=== PATIENT | male | born 1965 | race Two or more races ===

== ENCOUNTER 2016-08-11 11:02 | Emergency (ER) | payer OTHER ==
[2016-08-11 11:06] VITALS: BP 126/77; PULSE 82; TEMP 99.5; BMI 33.3
--- NOTE | 2016-08-11 11:47 | PDOC ---
History of Present Illness - General Chief Complaint: Cold Symptoms Stated Complaint: BODY ACHES, FEVER Time Seen by Provider: 08/11/16 11:24 History Source: Patient Exam Limitations: No Limitations - History of Present Illness Initial Comments: 08/11/16 11:45 My Chief Complaint: Generalized body aches, fever since yesterday History of present illness: Patient is a 51-year-old male with a history of glaucoma here today complaining of generalized body aches and fever since yesterday. Patient reports that he did have his influenza vaccine a couple of months ago. Patient denies any sick contacts or any recent travel. Patient denies any nasal congestion, sore throat, cough, or any shortness of breath. Timing/Duration: intermittent (since yesterday) Associated Symptoms: reports: fever/chills, other (bodyaches ) Past History - Past Medical History Allergies/Adverse Reactions: Allergies Allergy/AdvReac Type Severity Reaction Status Date / Time aspirin Allergy Mild "BLOOD Verified 08/11/16 11:08 BECOMES TOO LIQUID" Home Medications: Ambulatory Orders Dorzolamide HCl [Trusopt 2%] 1 drop TID 09/17/15 Latanoprost 2.5 ml OP BID 09/17/15 Lidocaine 5% Patch [Lidoderm -] 1 patch TP DAILY #3 patch 09/17/15 Metaxalone [Skelaxin] 800 mg PO TID PRN #12 tablet 09/17/15 Other medical history: GLAUCOMA - Psycho/Social/Smoking Cessation Hx Anxiety: No Suicidal Ideation: No Smoking History: Current every day smoker Number of Cigarettes Smoked Daily: 20 Information on smoking cessation initiated: No 'Breaking Loose' booklet given: 05/10/14 Hx Alcohol Use: No Drug/Substance Use Hx: No Substance Use Type: None Review of Systems - Review of Systems Able to Perform ROS?: Yes Constitutional: Yes: Chills, Fever HEENTM: Yes: Nose Congestion Respiratory: No: Symptoms reported Cardiac (ROS): No: Symptoms Reported ABD/GI: No: Symptoms Reported : No: Symptoms Reported Musculoskeletal: Yes: Other (generalized bodyaches) Integumentary: No: Symptoms Reported Neurological: No: Symptoms reported *Physical Exam - Vital Signs Last Vital Signs Temp Pulse Resp BP Pulse Ox 99.5 F 82 20 126/77 98 08/11/16 11:03 08/11/16 11:03 08/11/16 11:03 08/11/16 11:03 08/11/16 11:03 - Physical Exam General Appearance: Yes: Appropriately Dressed HEENT: positive: Normal ENT Inspection Neck: negative: Lymphadenopathy (R), Lymphadenopathy (L) Respiratory/Chest: positive: Lungs Clear, Normal Breath Sounds. negative: Chest Tender, Respiratory Distress Cardiovascular: positive: Regular Rhythm, Regular Rate, S1, S2 Integumentary: positive: Normal Color Neurologic: positive: Alert, Normal Response, Responsive Medical Decision Making - Medical Decision Making 08/11/16 11:46 Patient is a 51-year-old male with a history of glaucoma here today complaining of generalized body aches and fever since yesterday. Patient reports that he did have his influenza vaccine a couple of months ago. Patient denies any sick contacts or any recent travel. Patient denies any nasal congestion, sore throat , cough, or any shortness of breath. Rule out influenza A o& B flu like illness Plan: Influenza A o& B rapid negative pt. instructed to rest and to take either advil, aleve or ibuprofen as needed for fever or bodyaches 08/11/16 12:15 *DC/Admit/Observation/Transfer Diagnosis at time of Disposition: Flu-like symptoms - Discharge Dispostion Disposition: HOME Condition at time of disposition: Stable - Patient Instructions Additional Instructions: Rest and drink a lot of fluids Take ibuprofen, Aleve, or Advil as needed as directed by manufacture for body aches or fever Return here if any difficulty breathing or swallowing or any new symptoms develop Follow-up with your primary care provider within the next few days Patient voiced understanding of discharge instructions and all questions were answered had
== END 2016-08-11 12:22 | disposition home or self-care (01) ==
LOC: JERFT 11:02
DX: J11.1 Influenza due to unidentified influenza virus with other respiratory manifestations (principal); F17.210 Nicotine dependence, cigarettes, uncomplicated
CPT/HCPCS: 87804; 99281-25

== ENCOUNTER 2018-05-10 14:10 | Emergency (ER) | payer OTHER ==
[2018-05-10 14:24] VITALS: BP 133/91; PULSE 85; TEMP 98.5; BMI 34.6
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
[2018-05-10] MEDS ORDERED: KETOROLAC TROMETHAMINE 60 MG/2 ML VIAL ONE (15:00)
[2018-05-10] MEDS ORDERED: ACETAMINOPHEN 500 MG TABLET (FP) PO ONE (16:26)
[2018-05-10] MEDS ORDERED: ACETAMINOPHEN 325 MG TABLET (FP) ONE (16:47)
[2018-05-10] MEDS ORDERED: KETOROLAC TROMETHAMINE 30 MG/1 ML VIAL IM ONE (16:54)
== END 2018-05-10 18:58 | disposition home or self-care (01) ==
LOC: JER 14:10
PROC: 3E0233Z Introduction of Anti-inflammatory into Muscle, Percutaneous Approach (ICD-10-PCS; principal; 2018-05-10)
DX: G44.319 Acute post-traumatic headache, not intractable (principal); R68.84 Jaw pain; M54.5 Low back pain; V43.62XA Car passenger injured in collision with other type car in traffic accident, initial encounter; Y92.488 Other paved roadways as the place of occurrence of the external cause; Y93.89 Activity, other specified; Y99.8 Other external cause status
CPT/HCPCS: 70450-TC; 72100-TC-FY; 96372; 99281-25

== ENCOUNTER 2018-06-04 16:08 | Observation (INO) | payer OTHER ==
--- NOTE | 2018-06-04 16:16 | PDOC ---
Rapid Medical Evaluation Time Seen by Provider: 06/04/18 16:12 Medical Evaluation: Allergies Allergy/AdvReac Type Severity Reaction Status Date / Time aspirin Allergy Mild "BLOOD Verified 05/10/18 14:17 BECOMES TOO LIQUID" 06/04/18 16:13 I have performed a brief in-person evaluation of this patient. The patient presents with a chief complaint of: midsternal chest pain Pertinent physical exam findings: Lungs CTAB. RRR. No m/r/g. TTP to left chest at 4th ICS. I have ordered the following: labs, ekg, urine, CXR The patient will proceed to the ED for further evaluation. Discharge Disposition - Diagnosis Chest pain - Referrals - Patient Instructions - Post Discharge Activity
[2018-06-04 16:23] VITALS: BMI 33.6
[2018-06-04 17:05] LABS: BASO % 0.4 % (0-2.0); EOS % 1.6 % (0-4.5); HEMATOCRIT 42.5 % (35.4-49); LYMPH % 27.8 % (8-40); MCH 30.7 pg (25.7-33.7); MCHC 35.3 g/dl (32.0-35.9); MEAN PLT VOLUME 9.9 fl (7.5-11.1); MONO % 6.5 % (3.8-10.2); NEUT % 63.7 % (42.8-82.8); PLATELET COUNT 136 K/MM3 (134-434); RBC 4.89 M/mm3 (4.00-5.60); RDW 12.4 % (11.9-15.9); WHITE BLOOD COUNT 7.6 K/mm3 (4.0-10.0)
[2018-06-04] MEDS ORDERED: ACETAMINOPHEN 325 MG TABLET (FP) PO ONE (17:08)
--- NOTE | 2018-06-04 17:08 | PDOC ---
History of Present Illness - General Chief Complaint: Chest Pain Stated Complaint: CHEST PAIN Time Seen by Provider: 06/04/18 16:12 - History of Present Illness Initial Comments: 06/04/18 17:04 Patient is a 53 year old male with past medical history of glaucoma, presented with sudden-onset 10/10 tearing mid-sternal chest pain that started this morning. Pain was nonradiating, occured at rest, and lasted for about 30 minutes. This was the patient's first episode. Patient consulted with PCP because the chest pain became intermittent. At the office, BP was noted to be elevated at 140s/90s, EKG was done which was reported to be normal, and patient was sent home with instructions to take Nitroglycerin and to go to the ED if pain persists. Patient then went to Dr. Jimenez's office for further evaluation of a noted elevated Creatinine of 3. On the way home, patient experienced the chest pain again, took another dose of nitroglycerin and came to the ED. Patient also reports headache after taking the 2nd dose of nitroglycerin. Denies dizziness, fevers, chills, SOB, palpitations, abdominal pain, or urinary symptoms. Past History - Travel Traveled outside of the country in the last 30 days: No Close contact w/someone who was outside of country & ill: No - Past Medical History Allergies/Adverse Reactions: Allergies Allergy/AdvReac Type Severity Reaction Status Date / Time aspirin Allergy Mild "BLOOD Verified 06/04/18 16:23 BECOMES TOO LIQUID" Home Medications: Ambulatory Orders Dorzolamide HCl [Trusopt 2%] 1 drop TID 09/17/15 Latanoprost 2.5 ml OP BID 09/17/15 Asthma: No Cardiac Disorders: No COPD: No Hx Glaucoma: Yes HTN: No Hypercholesterolemia: No - Family Disease History Family Disease History: Diabetes: Mother - Suicide/Smoking/Psychosocial Hx Smoking History: Current every day smoker Have you smoked in the past 12 months: Yes Number of Cigarettes Smoked Daily: 2 Information on smoking cessation initiated: No 'Breaking Loose' booklet given: 05/10/14 Hx Alcohol Use: No Drug/Substance Use Hx: No Substance Use Type: None Lives with/in: spouse/SO Review of Systems - Review of Systems Constitutional: Yes: Weakness. No: Chills, Fever HEENTM: No: Blurred Vision, Nose Congestion, Difficulty Swallowing Respiratory: No: Cough, Orthopnea, Shortness of Breath Cardiac (ROS): Yes: Chest Pain. No: Edema, Palpitations ABD/GI: No: Abdominal Distended, Constipated, Diarrhea : No: Burning, Dysuria Musculoskeletal: No: Back Pain, Muscle Weakness *Physical Exam - Vital Signs Last Vital Signs Temp Pulse Resp BP Pulse Ox 98.9 F 84 18 139/92 100 06/05/18 15:01 06/05/18 15:01 06/05/18 15:01 06/05/18 15:01 06/05/18 15:01 - Physical Exam General Appearance: Yes: Nourished, Appropriately Dressed, Mild Distress HEENT: positive: EOMI, DEEP, Normal ENT Inspection, TMs Normal, Pharynx Normal Neck: positive: Trachea midline, Normal Thyroid, Supple Respiratory/Chest: positive: Lungs Clear, Normal Breath Sounds Cardiovascular: positive: Regular Rhythm, Regular Rate. negative: Murmur Gastrointestinal/Abdominal: positive: Normal Bowel Sounds, Tender (epigastric tenderness), Soft. 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, Fully Oriented, Alert, Normal Mood/ Affect, Normal Response, Motor Strength 5/5 Heart Score/ECG Review - Electrocardiogram EKG: Normal ED Treatment Course - LABORATORY CBC & Chemistry Diagram: 06/05/18 06:00 06/05/18 06:00 - ADDITIONAL ORDERS Additional order review: 06/04/18 16:46 RBC 4.89 MCV 87.0 MCHC 35.3 RDW 12.4 MPV 9.9 Neutrophils % 63.7 Lymphocytes % 27.8 Monocytes % 6.5 Eosinophils % 1.6 Basophils % 0.4 - RADIOLOGY Radiology Studies Ordered: Category Date Time Status ABDOMEN/PELVIS CTA W/WO CONTR [CT] Stat CT Scan 06/04/18 18:00 Completed CHEST CTA [CT] Stat CT Scan 06/04/18 17:58 Completed - Medications Given in the ED: ED Medications Discontinued Medications Generic Name Dose Route Start Last Admin Trade Name Freq PRN Reason Stop Dose Admin Acetaminophen 650 mg 06/04/18 17:08 06/04/18 17:20 Tylenol - PO 06/04/18 17:09 650 mg ONCE ONE Administration Clopidogrel Bisulfate 300 mg 06/05/18 14:23 11/22/18 14:43 Plavix - PO 06/05/18 14:24 300 mg ONCE ONE Administration Sodium Chloride 1,000 mls @ 1,000 mls/hr 06/04/18 17:28 06/04/18 17:30 Normal Saline - IV 06/04/18 18:27 1,000 mls/hr ASDIR STA Administration Sodium Chloride 1,000 mls @ 1,000 mls/hr 06/04/18 18:37 06/04/18 18:58 Normal Saline - IV 06/04/18 19:36 1,000 mls/hr ASDIR STA Administration Non-Formulary Medication 1 each 06/04/18 22:00 06/04/18 22:04 Patient's Own Med OU 1 each DAILY CLARA Administration Medical Decision Making - Medical Decision Making 06/04/18 17:43 Patient is a 53 year old male with past medical history of glaucoma, presented with sudden-onset 10/10 tearing mid-sternal chest pain that started this morning. Pain was nonradiating, occured at rest, and lasted for about 30 minutes. Patient took 2 doses of Nitroglycerin tabs prior to coming to the ED. General: awake, alert, fully oriented, not in acute distress HEENT: PERRLA, EOMI, sclerae anicteric, no nasal discharge, moist mucous membranes Neck: supple, trachea midline without LAD Lung: clear to auscultation bilaterally Heart: regular rate and rhythm, normal S1/S2, no m,r,g Abdomen: soft, +epigastric tenderness, nondistended, NABS Ext: +2 pulses, warm, no peripheral edema DDx includes but not limited to ACS, aortic dissection, PE, GERD, MSK Plans: EKG - NSR CXR - no acute pathology CBC CMP Trop, CK Coags 06/04/18 19:15 CTA done - pending official read Iv NS bolus x2 Trop 0.05 Will repeat trop at 2230H *DC/Admit/Observation/Transfer Diagnosis at time of Disposition: Chest pain - Referrals - Patient Instructions - Post Discharge Activity
[2018-06-04] MEDS ORDERED: ACETAMINOPHEN 325 MG TABLET (FP) ONE (17:17)
[2018-06-04 17:23] LABS: INR 1.03 (0.83-1.09); PROTHROMBIN TIME (PATIENT) 12.2 SEC (9.7-13.0)
[2018-06-04] MEDS ORDERED: SODIUM CHLORIDE 1,000 ML IV STA ×2 (17:28→18:37)
[2018-06-04 17:29] LABS: ALBUMIN 3.9 g/dl (3.4-5.0); ALK PHOS 68 U/L (45-117); ANION GAP 10 MMOL/L (8-16); BILIRUBIN,TOTAL 1.2 mg/dL (0.2-1); BLOOD UREA NITROGEN 20 mg/dL (7-18); CALCIUM 8.6 mg/dL (8.5-10.1); CHLORIDE 108 mmol/L (98-107); CO2 24 mmol/L (21-32); CREATININE 1.4 mg/dL (0.55-1.3); GLUCOSE,RANDOM 87 mg/dL (74-106); MAGNESIUM 2.3 mg/dL (1.8-2.4); POTASSIUM 3.6 mmol/L (3.5-5.1); SGOT/AST 18 U/L (15-37); SGPT/ALT 29 U/L (13-61); SODIUM 143 mmol/L (136-145); TOT PROT 7.8 g/dl (6.4-8.2)
--- NOTE | 2018-06-04 17:40 | PDOC ---
Attending Attestation - HPI HPI: This is a 53 year old male, with PMHx of glaucoma, who was presents to the ED for chest pain earlier today. Patient states that the chest pain began earlier this morning while he was sitting down eating. He states that the chest pain lasted for 30 minutes then subsided. He describes it as mid-sternal, dull, tearing, rates 10/10. He states that he went to see his primary Dr. Del Toro who said his EKG was normal and gave him a dose of Nitroglycerin. He saw [facility] visual designer for a f/u and noted elevated creatinine. PCP: Dr. Del Toro 06/04/18 18:27 <Esha Tian - Last Filed: 06/04/18 18:27> - Resident Resident Name: Romy Cheng - ED Attending Attestation I have performed the following: I have examined & evaluated the patient, The case was reviewed & discussed with the resident, I agree w/resident's findings & plan, Exceptions are as noted - Physicial Exam PE: GENERAL: Awake, alert, and fully oriented, in no acute distress HEAD: No signs of trauma EYES: PERRLA, EOMI, sclera anicteric, conjunctiva clear ENT: Auricles normal inspection, hearing grossly normal, nares patent, oropharynx clear without exudates. Moist mucosa NECK: Normal ROM, supple, no lymphadenopathy, JVD, or masses LUNGS: Breath sounds equal, clear to auscultation bilaterally. No wheezes, and no crackles HEART: Regular rate and rhythm, normal S1 and S2, no murmurs, rubs or gallops ABDOMEN: Soft, nontender, normoactive bowel sounds. No guarding, no rebound. No masses EXTREMITIES: Normal range of motion, no edema. No clubbing or cyanosis. No cords, erythema, or tenderness NEUROLOGICAL: Cranial nerves II through XII grossly intact. Normal speech, normal gait SKIN: Warm, Dry, normal turgor, no rashes or lesions noted. - Medical Decision Making Pt with midsternal cp described as ripping radiating to the abdomen. Will obtain CTA to r/o dissection. Likely admission for further workup. <Melanie Mccloud - Last Filed: 06/04/18 18:53>
[2018-06-04 19:16] LABS: URINE APPEARANCE CLEAR; URINE BILIRUBIN NEGATIVE (<2.0 mg/dL); URINE COLOR STRAW; URINE GLUCOSE (UA) NEGATIVE (NEGATIVE); URINE KETONE NEGATIVE (NEGATIVE); URINE LEUK ESTERASE NEGATIVE (NEGATIVE); URINE NITRITE NEGATIVE (NEGATIVE); URINE PROTEIN NEGATIVE (NEGATIVE); URINE UROBILINOGEN NEGATIVE mg/dL (0.2-1.0)
[2018-06-04 19:18] LABS: URINE MUCUS RARE
--- NOTE | 2018-06-04 22:30 | HP ---
CHIEF COMPLAINT: Chest pain PCP: Alverto HISTORY OF PRESENT ILLNESS: 53 year old male, with PMHx of glaucoma, presented with chest pain. First episode was in the morning, sharp pain, radiated b/l, no relation to exertion, not associated with shortness of breath and resolved after about 10 min. No nausea or vomiting, and no diarrhea. Pt was seen in PCPs office and received sublingual NGL. Second episode of chest pain in afternoon was similar. Patient reported normal cardiac stress test performed about 3 months ago. ER course was notable for: (1) Chest CT (2) EKG (3) Recent Travel: no PAST MEDICAL HISTORY: glaucoma PAST SURGICAL HISTORY: no Social History: Smoking: Hookah x 4 years Alcohol: no Drugs: no Family History: Allergies aspirin Allergy (Mild, Verified 06/04/18 16:23) "BLOOD BECOMES TOO LIQUID" HOME MEDICATIONS: Home Medications Medication Instructions Recorded Dorzolamide HCl [Trusopt 2%] 1 drop TID 09/17/15 Latanoprost 2.5 ml OP BID 09/17/15 REVIEW OF SYSTEMS CONSTITUTIONAL: Absent: fever, chills, diaphoresis, generalized weakness, malaise, loss of appetite, weight change HEENT: Absent: rhinorrhea, nasal congestion, throat pain, throat swelling, difficulty swallowing, mouth swelling, ear pain, eye pain, visual changes CARDIOVASCULAR: Absent: syncope, palpitations, irregular heart rate, lightheadedness, peripheral edema Present: chest pain, RESPIRATORY: Absent: cough, shortness of breath, dyspnea with exertion, orthopnea, wheezing, stridor, hemoptysis GASTROINTESTINAL: Absent: abdominal pain, abdominal distension, nausea, vomiting, diarrhea, constipation, melena, hematochezia GENITOURINARY: Absent: dysuria, frequency, urgency, hesitancy, hematuria, flank pain, genital pain MUSCULOSKELETAL: Absent: myalgia, arthralgia, joint swelling, back pain, neck pain SKIN: Absent: rash, itching, pallor HEMATOLOGIC/IMMUNOLOGIC: Absent: easy bleeding, easy bruising, lymphadenopathy, frequent infections ENDOCRINE: Absent: unexplained weight gain, unexplained weight loss, heat intolerance, cold intolerance NEUROLOGIC: Absent: headache, focal weakness or paresthesias, dizziness, unsteady gait, seizure, mental status changes, bladder or bowel incontinence PSYCHIATRIC: Absent: anxiety, depression, suicidal or homicidal ideation, hallucinations. PHYSICAL EXAMINATION Vital Signs - 24 hr 11/21/18 11/21/18 11/21/18 16:20 16:25 16:40 Temperature 97.9 F Pulse Rate 74 Pulse Rate [ 71 Apical] Respiratory 18 20 Rate Blood Pressure 126/79 Blood Pressure 119/89 [Right Arm] O2 Sat by Pulse 100 100 100 Oximetry (%) 06/04/18 17:21 Temperature Pulse Rate Pulse Rate [ 67 Apical] Respiratory 20 Rate Blood Pressure Blood Pressure 123/86 [Right Arm] O2 Sat by Pulse 100 Oximetry (%) GENERAL: Awake, alert, and fully oriented, in no acute distress. HEAD: Normal with no signs of trauma. EYES: Pupils equal, round and reactive to light, extraocular movements intact, sclera anicteric, conjunctiva clear. No lid lag. EARS, NOSE, THROAT: Ears normal, nares patent, oropharynx clear without exudates. Moist mucous membranes. NECK: Normal range of motion, supple without lymphadenopathy, JVD, or masses. LUNGS: Breath sounds equal, clear to auscultation bilaterally. No wheezes, and no crackles. No accessory muscle use. HEART: Regular rate and rhythm, normal S1 and S2 without murmur, rub or gallop. ABDOMEN: Soft, obese, nontender, not distended, normoactive bowel sounds, no guarding, no rebound, no masses. MUSCULOSKELETAL: Normal range of motion at all joints. No bony deformities or tenderness. No CVA tenderness. UPPER EXTREMITIES: 2+ pulses, warm, well-perfused. No cyanosis. No clubbing. No peripheral edema. LOWER EXTREMITIES: 2+ pulses, warm, well-perfused. No calf tenderness. No peripheral edema. NEUROLOGICAL: Normal speech. No focal neuro deficits noted PSYCHIATRIC: Cooperative. Good eye contact. Appropriate mood and affect. SKIN: Warm, dry, normal turgor, no rashes or lesions noted, normal capillary refill. Laboratory Results - last 24 hr 06/04/18 06/04/18 06/04/18 16:46 16:46 16:46 WBC 7.6 RBC 4.89 Hgb 15.0 Hct 42.5 MCV 87.0 MCH 30.7 MCHC 35.3 RDW 12.4 Plt Count 136 MPV 9.9 Absolute Neuts (auto) 4.8 Neutrophils % 63.7 Lymphocytes % 27.8 Monocytes % 6.5 Eosinophils % 1.6 Basophils % 0.4 Nucleated RBC % 0 PT with INR 12.20 INR 1.03 Sodium 143 Potassium 3.6 Chloride 108 H Carbon Dioxide 24 Anion Gap 10 BUN 20 H Creatinine 1.4 H Creat Clearance w eGFR 53.22 Random Glucose 87 Calcium 8.6 Magnesium 2.3 Total Bilirubin 1.2 H AST 18 ALT 29 Alkaline Phosphatase 68 Creatine Kinase 70 Troponin I 0.05 Total Protein 7.8 Albumin 3.9 Urine Color Urine Appearance Urine pH Ur Specific [place] Urine Protein Urine Glucose (UA) Urine Ketones Urine Blood Urine Nitrite Urine Bilirubin Urine Urobilinogen Ur Leukocyte Esterase Urine WBC (Auto) Urine RBC (Auto) Urine Mucus 06/04/18 18:57 WBC RBC Hgb Hct MCV MCH MCHC RDW Plt Count MPV Absolute Neuts (auto) Neutrophils % Lymphocytes % Monocytes % Eosinophils % Basophils % Nucleated RBC % PT with INR INR Sodium Potassium Chloride Carbon Dioxide Anion Gap BUN Creatinine Creat Clearance w eGFR Random Glucose Calcium Magnesium Total Bilirubin AST ALT Alkaline Phosphatase Creatine Kinase Troponin I Total Protein Albumin Urine Color Straw Urine Appearance Clear Urine pH 5.0 Ur Specific [place] 1.013 Urine Protein Negative Urine Glucose (UA) Negative Urine Ketones Negative Urine Blood 1+ H Urine Nitrite Negative Urine Bilirubin Negative Urine Urobilinogen Negative Ur Leukocyte Esterase Negative Urine WBC (Auto) 1 Urine RBC (Auto) <1 Urine Mucus Rare EKG reviewed- nsr, no acute ischemic changes seen cxr, chest ct reviewed ASSESSMENT/PLAN: #Atypical chest pain with normal ekg and negative trop x1. Recent negative reported stress test makes ACS unlikely. Possibly costochondritis. -tele/obs -trend troponin -NGL prn -ASA -cardiac evalaution #APTRICIA vs CKD- no baseline cr to compare -renal U/S -i/o -daily weights -avoid nephrotoxins -IV fluid hydration -repeat bmp #DVT ppx -heparin sc Visit type - Emergency Visit Emergency Visit: Yes ED Registration Date: 06/04/18 Care time: The patient presented to the Emergency Department on the above date and was hospitalized for further evaluation of their emergent condition. - New Patient This patient is new to me today: Yes Date on this admission: 06/04/18 - Critical Care Critical Care patient: No
[2018-06-04] MEDS ORDERED: NITROGLYCERIN SUBLINGUAL 1/150 0.4 MG TAB SL PRN (22:35)
[2018-06-04] MEDS ORDERED: SODIUM CHLORIDE 1,000 ML IV SCH (23:00)
[2018-06-05] MEDS: DORZOLAMIDE 2% HCL OPHTHALMIC SOLUTION 10 ML BOTTLE OS SCH ×2 (06:49→15:21)
[2018-06-05 06:53] LABS: BASO % 0.4 % (0-2.0); EOS % 1.2 % (0-4.5); HEMATOCRIT 36.5 % (35.4-49); HEMOGLOBIN 13.1 GM/dL (11.7-16.9); LYMPH % 27.1 % (8-40); MCH 31.4 pg (25.7-33.7); MCHC 35.8 g/dl (32.0-35.9); MEAN CELL VOLUME 87.6 fl (80-96); MEAN PLT VOLUME 9.8 fl (7.5-11.1); MONO % 7.2 % (3.8-10.2); NEUT % 64.1 % (42.8-82.8); PLATELET COUNT 100 K/MM3 (134-434); RBC 4.17 M/mm3 (4.00-5.60); RDW 12.3 % (11.9-15.9); WHITE BLOOD COUNT 6.3 K/mm3 (4.0-10.0)
[2018-06-05 07:25] LABS: ANION GAP 5 MMOL/L (8-16); BLOOD UREA NITROGEN 16 mg/dL (7-18); CALCIUM 7.8 mg/dL (8.5-10.1); CHLORIDE 114 mmol/L (98-107); CO2 26 mmol/L (21-32); CREATININE 1.3 mg/dL (0.55-1.3); GLUCOSE,RANDOM 85 mg/dL (74-106); POTASSIUM 3.8 mmol/L (3.5-5.1); SODIUM 145 mmol/L (136-145)
--- NOTE | 2018-06-05 07:26 | PDOC ---
*Physical Exam - Vital Signs Last Vital Signs Temp Pulse Resp BP Pulse Ox 98.5 F 89 19 100/56 L 98 06/05/18 06:56 06/05/18 06:56 06/05/18 06:56 06/05/18 06:56 06/05/18 06:56 - Physical Exam Comments: Received at sign out from on 06/04/2018 at 7pm ED Treatment Course - LABORATORY CBC & Chemistry Diagram: 06/05/18 06:00 06/05/18 06:00 - ADDITIONAL ORDERS Additional order review: 06/04/18 16:46 RBC 4.89 MCV 87.0 MCHC 35.3 RDW 12.4 MPV 9.9 Neutrophils % 63.7 Lymphocytes % 27.8 Monocytes % 6.5 Eosinophils % 1.6 Basophils % 0.4 - Medications Given in the ED: ED Medications Discontinued Medications Generic Name Dose Route Start Last Admin Trade Name Freq PRN Reason Stop Dose Admin Acetaminophen 650 mg 06/04/18 17:08 06/04/18 17:20 Tylenol - PO 06/04/18 17:09 650 mg ONCE ONE Administration Sodium Chloride 1,000 mls @ 1,000 mls/hr 06/04/18 17:28 06/04/18 17:30 Normal Saline - IV 06/04/18 18:27 1,000 mls/hr ASDIR STA Administration Sodium Chloride 1,000 mls @ 1,000 mls/hr 06/04/18 18:37 06/04/18 18:58 Normal Saline - IV 06/04/18 19:36 1,000 mls/hr ASDIR STA Administration Non-Formulary Medication 1 each 06/04/18 22:00 06/04/18 22:04 Patient's Own Med OU 1 each DAILY CLARA Administration *DC/Admit/Observation/Transfer Diagnosis at time of Disposition: Chest pain - Referrals - Patient Instructions - Post Discharge Activity
[2018-06-05] MEDS ORDERED: ASPIRIN COATED 81 MG TABLET.EC ONE (09:08)
[2018-06-05 09:13] LABS: URINE APPEARANCE CLEAR; URINE BILIRUBIN NEGATIVE (<2.0 mg/dL); URINE COLOR COLORLESS; URINE GLUCOSE (UA) NEGATIVE (NEGATIVE); URINE KETONE NEGATIVE (NEGATIVE); URINE LEUK ESTERASE NEGATIVE (NEGATIVE); URINE NITRITE NEGATIVE (NEGATIVE); URINE PROTEIN NEGATIVE (NEGATIVE); URINE UROBILINOGEN NEGATIVE mg/dL (0.2-1.0)
[2018-06-05 09:25] LABS: URINE MUCUS RARE
[2018-06-05] MEDS ORDERED: ASPIRIN COATED 81 MG TABLET.EC PO SCH (10:00)
--- NOTE | 2018-06-05 11:56 | PN ---
Progress Note, Physician - Current Medication List Current Medications: Active Medications Aspirin (Ecotrin -) 81 mg PO DAILY [facility] Last Admin: 06/05/18 09:09 Dose: 81 mg Dorzolamide HCl (Trusopt 2%) 1 drop OS TID [facility] Last Admin: 06/05/18 06:49 Dose: 1 drop Sodium Chloride (Normal Saline -) 1,000 mls @ 75 mls/hr IV ASDIR [facility] Last Admin: 06/04/18 23:01 Dose: 75 mls/hr Latanoprost (Xalatan 0.005% Eye Drops -) 1 drop OS HS [facility] Nitroglycerin (Nitrostat -) 0.4 mg SL Q5M PRN PRN Reason: FOR CHEST PAIN - Objective Vital Signs: Vital Signs Temperature 98 F 06/05/18 11:08 Pulse Rate 63 06/05/18 11:08 Respiratory Rate 18 06/05/18 11:08 Blood Pressure 110/58 L 06/05/18 11:08 O2 Sat by Pulse Oximetry (%) 98 06/05/18 11:08 Cardiovascular: Yes: Regular Rate and Rhythm Respiratory: Yes: Regular, CTA Bilaterally Gastrointestinal: Yes: Normal Bowel Sounds, Soft. No: Tenderness Labs: CBC, BMP 06/05/18 06:00 06/05/18 06:00 INR, PTT INR 1.03 (0.83-1.09) 06/04/18 16:46 Problem List - Problems (1) Chest pain Assessment/Plan: Recent negative reported stress test -NGL prn -ASA -cardiac evalaution -Follow trends -tele -CTA negative Code(s): R07.9 - CHEST PAIN, UNSPECIFIED (2) PATRICIA (acute kidney injury) Assessment/Plan: -renal U/S -i/o -daily weights -avoid nephrotoxins -IV fluid hydration -repeat bmp Code(s): N17.9 - ACUTE KIDNEY FAILURE, UNSPECIFIED (3) Back pain Code(s): M54.9 - DORSALGIA, UNSPECIFIED Qualifiers: Back pain location: low back pain Chronicity: acute Back pain laterality : left Sciatica presence: without sciatica Qualified Code(s): M54.5 - Low back pain
--- NOTE | 2018-06-05 11:57 | CONSULT ---
Consult Consult Specialty:: Nephrology Reason for Consultation:: PATRICIA - History of Present Illness Chief Complaint: chest pain History of Present Illness: Pt is a 53 year old male with pmhx of glaucoma who presents to the ER for chest pain. He was seen in the office by me yesterday for acute renal failure. He was sent in with a spar finisher of over 3. He did not have any chest pain when I saw him. He began to have tearing pain on the way home. He was worked up for dissection. His renal function was improved in the hospital. He currently is awake and alert and does not complain of chest pain. - Alcohol/Substance Use Hx Alcohol Use: No - Smoking History Smoking history: Current every day smoker Have you smoked in the past 12 months: Yes Aproximately how many cigarettes per day: 2 Home Medications - Allergies Allergies/Adverse Reactions: Allergies Allergy/AdvReac Type Severity Reaction Status Date / Time aspirin Allergy Mild "BLOOD Verified 06/04/18 16:23 BECOMES TOO LIQUID" - Home Medications Home Medications: Ambulatory Orders Dorzolamide HCl [Trusopt 2%] 1 drop TID 09/17/15 Latanoprost 2.5 ml OP BID 09/17/15 Family Disease History - Family Disease History Family History: Denies Review of Systems - Review of Systems Constitutional: reports: Malaise Eyes: reports: No Symptoms HENT: reports: No Symptoms Neck: reports: No Symptoms Cardiovascular: reports: Chest Pain. denies: Palpitations, Shortness of Breath Respiratory: denies: SOB, SOB on Exertion Gastrointestinal: reports: No Symptoms Genitourinary: reports: No Symptoms Musculoskeletal: reports: Back Pain Integumentary: reports: No Symptoms Neurological: reports: No Symptoms Endocrine: reports: No Symptoms, Unexplained Weight Gain Psychiatric: reports: No Symptoms Physical Exam Vital Signs: Vital Signs Temperature 98 F 06/05/18 11:08 Pulse Rate 63 06/05/18 11:08 Respiratory Rate 18 06/05/18 11:08 Blood Pressure 110/58 L 06/05/18 11:08 O2 Sat by Pulse Oximetry (%) 98 06/05/18 11:08 Constitutional: Yes: Anxious Eyes: Yes: Conjunctiva Clear HENT: Yes: Atraumatic Cardiovascular: Yes: S1, S2 Respiratory: Yes: CTA Bilaterally Gastrointestinal: Yes: Normal Bowel Sounds Renal/: Yes: WNL Musculoskeletal: Yes: WNL Edema: No Neurological: Yes: Oriented Psychiatric: Yes: Oriented Labs: CBC, BMP 06/05/18 06:00 06/05/18 06:00 Laboratory Tests 06/04/18 06/04/18 06/04/18 16:46 18:57 22:23 Potassium 3.6 Creatinine 1.4 H Troponin I 0.05 0.07 H Urine Protein Urine Blood 1+ H 06/05/18 06/05/18 06:00 09:00 Potassium 3.8 Creatinine 1.3 Troponin I 0.08 H Urine Protein Negative Urine Blood 1+ H Imaging - Results Cat Scan: Report Reviewed Problem List - Problems (1) PATRICIA (acute kidney injury) Code(s): N17.9 - ACUTE KIDNEY FAILURE, UNSPECIFIED (2) Chest pain Code(s): R07.9 - CHEST PAIN, UNSPECIFIED Assessment/Plan Current Medications Generic Name Dose Route Start Last Admin Trade Name Freq PRN Reason Stop Dose Admin Aspirin 81 mg 06/05/18 10:00 06/05/18 09:09 Ecotrin - PO 81 mg DAILY CLARA Administration Dorzolamide HCl 1 drop 06/05/18 06:00 06/05/18 06:49 Trusopt 2% OS 1 drop TID CLARA Administration Sodium Chloride 1,000 mls @ 75 mls/hr 06/04/18 23:00 06/04/18 23:01 Normal Saline - IV 75 mls/hr ASDIR CLARA Administration Latanoprost 1 drop 06/05/18 22:00 Xalatan 0.005% Eye Drops - OS HS [facility]ARA Nitroglycerin 0.4 mg 06/04/18 22:35 Nitrostat - SL Q5M PRN FOR CHEST PAIN Impression 1. PATRICIA resolving 2. microscopic hematuria 3. glaucoma 4. chest pain Plan - cont fluids - renal function is improving - follow renal ultrasound - renal workup done in office yesterday - will follow Dr Jimenez
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
[2018-06-05] MEDS ORDERED: CLOPIDOGREL BISULFATE 300 MG TABLET PO ONE (14:23)
[2018-06-05] MEDS ORDERED: CLOPIDOGREL BISULFATE 300 MG TABLET ONE (14:38)
[2018-06-05 15:02] VITALS: BP 139/92; PULSE 84; TEMP 98.9
[2018-06-05] MEDS ORDERED: LATANOPROST 0.005% OPHTH SOLN 2.5ML BOTTLE OS SCH ×2 (22:00)
[2018-06-05] MEDS ORDERED: ATORVASTATIN CA 40 MG TABLET (FP) PO SCH (22:00)
[2018-06-06 06:06] LABS: MICROALBUMIN/CREATININE RATIO 11.3 mg/g creat (0.0-30.0)
--- NOTE | 2018-06-06 10:07 | EKG ---
Test Reason : Blood Pressure : / mmHG Vent. Rate : 072 BPM Atrial Rate : 072 BPM P-R Int : 148 ms QRS Dur : 080 ms QT Int : 374 ms P-R-T Axes : 053 -43 042 degrees QTc Int : 409 ms NORMAL SINUS RHYTHM POSSIBLE LEFT ATRIAL ENLARGEMENT LEFT AXIS DEVIATION ABNORMAL ECG NO PREVIOUS ECGS AVAILABLE Confirmed by VIRGEN YIN MD ([id number]) on 06/06/2018 10:06:56 AM Referred By: Confirmed By:VIRGEN YIN MD
== END 2018-06-05 15:15 | disposition short-term general hospital (02) ==
LOC: JER 16:08 → JERBED 20:47
PROVIDERS: ADMIT Family Medicine; ATTEND Family Medicine
PROC: 3E0337Z Introduction of Electrolytic and Water Balance Substance into Peripheral Vein, Percutaneous Approach (ICD-10-PCS; principal; 2018-06-04)
DX: R07.9 Chest pain, unspecified (principal); N17.9 Acute kidney failure, unspecified; F17.210 Nicotine dependence, cigarettes, uncomplicated; H40.9 Unspecified glaucoma; M54.5 Low back pain; Z88.6 Allergy status to analgesic agent
CPT/HCPCS: 36415; 71046-TC-FY; 71275-TC; 74174-TC; 76775-TC; 80048; 80053; 80061; 81003; 81015; 82043; 82550; 82570; 83036; 83721; 83735; 84443; 84484; 85025; 85610; 93005; 93010; 96360; 96361; 99285-25; G0378; J7030

== ENCOUNTER 2018-08-30 00:35 | Emergency (ER) | payer OTHER ==
[2018-08-30 01:25] VITALS: BP 126/84; PULSE 86; TEMP 98.1; BMI 25.7
[2018-08-30] MEDS ORDERED: ACETAMINOPHEN 500 MG TABLET (FP) PO ONE (02:09)
[2018-08-30] MEDS ORDERED: diphenhydrAMINE HCL 25 MG CAPSULE (FP) PO ONE ×2 (02:14→02:23)
--- NOTE | 2018-08-30 02:14 | PDOC ---
Attending Attestation - Resident Resident Name: Driss Ballesteros - ED Attending Attestation I have performed the following: I have examined & evaluated the patient, The case was reviewed & discussed with the resident, I agree w/resident's findings & plan - HPI HPI: 08/30/18 04:02 Pt comes with cough and cold and congestion and feeling that he couldnt breathe normally which woke him up from sleep. - Physicial Exam PE: 08/30/18 04:04 Agree iw resident exam - Medical Decision Making 08/30/18 04:04 EKG normal; CXR normal; flu negative. Pt's vitals are normal and he will go home. Heart Score/ECG Review - ECG Intrepretation Rhythm: Regular Rhythm - [place] Vis[place]: Left [place] Deviation - P and VT Delta Wave(s) Present: No WPW: No - QRS Poor R Wave Progression: No Q Wave Present: No - ST and T Early Repolarization: No Non Specific ST-T Wave changes: No Flattened T Waves: No Prolonged Q-T Interval: No - ECG Impressions Normal ECG: Yes Non-specific ST Elevation: No Ischemic Changes: No Bradycardia: No Torsades kathleen Pointes: No WPW: No
[2018-08-30] MEDS ORDERED: ACETAMINOPHEN 325 MG TABLET (FP) ONE (02:23)
--- NOTE | 2018-08-30 03:43 | PDOC ---
History of Present Illness - General Chief Complaint: Cold Symptoms Stated Complaint: COLD SYMPTOMS Time Seen by Provider: 08/30/18 01:24 History Source: Patient Exam Limitations: No Limitations - History of Present Illness Initial Comments: 08/30/18 03:40 Patient is 53M with no significant medical history here today with cough, stuffy nose and headache that started this morning. Patient states that he came into the ED because he couldn't breathe with his mouth closed. Denies shortness of breath, chest pain, fevers, chills, nausea, vomiting. Endorses getting flu shot. Past History - Past Medical History Allergies/Adverse Reactions: Allergies Allergy/AdvReac Type Severity Reaction Status Date / Time aspirin Allergy Mild "BLOOD Verified 08/30/18 01:22 BECOMES TOO LIQUID" Home Medications: Ambulatory Orders Dorzolamide HCl [Trusopt 2%] 1 drop TID 09/17/15 Latanoprost 2.5 ml OP BID 09/17/15 Asthma: No Cardiac Disorders: No COPD: No HTN: No Hypercholesterolemia: No - Family Disease History Family Disease History: Diabetes: Mother - Immunization History Immunization Up to Date: Yes - Suicide/Smoking/Psychosocial Hx Smoking History: Never smoked Have you smoked in the past 12 months: No Number of Cigarettes Smoked Daily: 2 Information on smoking cessation initiated: No 'Breaking Loose' booklet given: 05/10/14 Hx Alcohol Use: No Drug/Substance Use Hx: No Substance Use Type: None Review of Systems - Review of Systems Comments:: 08/30/18 03:41 GENERAL/CONSTITUTIONAL: No fever or chills. No weakness. HEAD, EYES, EARS, NOSE AND THROAT: No change in vision. No ear pain or discharge. No sore throat. CARDIOVASCULAR: No chest pain or shortness of breath RESPIRATORY: +cough, no wheezing, or hemoptysis. GASTROINTESTINAL: No nausea, vomiting, diarrhea or constipation. GENITOURINARY: No dysuria, frequency, or change in urination. MUSCULOSKELETAL: No joint or muscle swelling or pain. No neck or back pain. SKIN: No rash NEUROLOGIC: No headache, vertigo, loss of consciousness, or change in strength/ sensation. ENDOCRINE: No increased thirst. No abnormal weight change HEMATOLOGIC/LYMPHATIC: No anemia, easy bleeding, or history of blood clots. ALLERGIC/IMMUNOLOGIC: No hives or skin allergy. *Physical Exam - Vital Signs Last Vital Signs Temp Pulse Resp BP Pulse Ox 98.1 F 86 20 126/84 97 08/30/18 00:45 08/30/18 00:45 08/30/18 00:45 08/30/18 00:45 08/30/18 00:45 - Physical Exam Comments: 08/30/18 03:41 GENERAL: Awake, alert, and fully oriented, in no acute distress HEAD: No signs of trauma, normocephalic, atraumatic EYES: PERRLA, EOMI, sclera anicteric, conjunctiva clear ENT: Auricles normal inspection, hearing grossly normal, nares patent, oropharynx clear without exudates. Moist mucosa NECK: Normal ROM, supple, no lymphadenopathy, JVD, or masses LUNGS: No distress, speaks full sentences, clear to auscultation bilaterally HEART: Regular rate and rhythm, normal S1 and S2, no murmurs, rubs or gallops, peripheral pulses normal and equal bilaterally. ABDOMEN: Soft, nontender, normoactive bowel sounds. No guarding, no rebound. No masses EXTREMITIES: Normal inspection, Normal range of motion, no edema. No clubbing or cyanosis. NEUROLOGICAL: Cranial nerves II through XII grossly intact. Normal speech, normal gait, no focal sensorimotor deficits SKIN: Warm, Dry, normal turgor, no rashes or lesions noted. Moderate Sedation - Procedure Monitoring Vital Signs: Procedure Monitoring Vital Signs Temperature 98.1 F 08/30/18 00:45 Pulse Rate 86 08/30/18 00:45 Respiratory Rate 20 08/30/18 00:45 Blood Pressure 126/84 08/30/18 00:45 O2 Sat by Pulse Oximetry (%) 97 08/30/18 00:45 ED Treatment Course - RADIOLOGY Radiology Studies Ordered: Category Date Time Status CHEST PA & LAT [RAD] Stat Radiology 08/30/18 02:09 Taken - Medications Given in the ED: ED Medications Discontinued Medications Generic Name Dose Route Start Last Admin Trade Name Freq PRN Reason Stop Dose Admin Acetaminophen 975 mg 08/30/18 02:09 08/30/18 02:25 Tylenol - PO 08/30/18 02:10 975 mg ONCE ONE Administration Diphenhydramine HCl 50 mg 08/30/18 02:14 08/30/18 02:25 Benadryl - PO 08/30/18 02:15 50 mg ONCE ONE Administration Medical Decision Making - Medical Decision Making 08/30/18 03:41 Patient is 53M here today with cold symptoms. Vitals normal and stable. Exam normal and stable. Will rule out pneumonia with cxr, r/o flu, and do screening ekg. EKG shows nsr with left axis deviation. No st elevations/depressions. Normal axis. Normal intervals. No significant t wave abnormalities. CXR clear. Will discharge home. *DC/Admit/Observation/Transfer Diagnosis at time of Disposition: Upper respiratory infection - Discharge Dispostion Disposition: HOME Condition at time of disposition: Good Decision to Admit order: No - Referrals Referrals: Constantine Del Toro MD [Primary Care Provider] - - Patient Instructions Printed Discharge Instructions: DI for Viral Upper Respiratory Infection -- Adult Additional Instructions: Please follow up with your primary care provider this week. Please return if you have any new, worsening or concerning symptoms, especially fever, increasing pain and shortness of breath. - Post Discharge Activity
--- NOTE | 2018-08-30 12:57 | EKG ---
Test Reason : Blood Pressure : / mmHG Vent. Rate : 074 BPM Atrial Rate : 074 BPM P-R Int : 160 ms QRS Dur : 088 ms QT Int : 382 ms P-R-T Axes : 054 -40 040 degrees QTc Int : 424 ms NORMAL SINUS RHYTHM LEFT AXIS DEVIATION LEFT ATRIAL ENLARGEMENT WHEN COMPARED WITH ECG OF 04-JUN-2018 16:17, NO SIGNIFICANT CHANGE WAS FOUND Confirmed by VIRGEN YIN MD ([id number]) on 08/30/2018 12:57:25 PM Referred By: Confirmed By:VIRGEN YIN MD
== END 2018-08-30 03:44 | disposition home or self-care (01) ==
LOC: JER 00:35
DX: J06.9 Acute upper respiratory infection, unspecified (principal)
CPT/HCPCS: 71046-TC-FY; 87804; 93005; 93010; 99282-25

== ENCOUNTER 2022-06-25 04:03 | Day surgery (SDC) | payer OTHER ==
[2022-05-10 15:45] VITALS: BMI 33.6
[2022-06-25 07:08] VITALS: RESP 20; TEMP 97.1
[2022-06-25] MEDS ORDERED: MIDAZOLAM HCL 2 MG/2 ML SINGLE DOSE VIAL ONE (09:35)
[2022-06-25] MEDS ORDERED: FENTANYL CITRATE/PF 50 MCG/ML VIAL ONE (09:35)
[2022-06-25] MEDS ORDERED: ONDANSETRON 4 MG/2 ML VIAL ONE (09:36)
[2022-06-25 11:09] VITALS: BP 108/80; PULSE 53
== END 2022-06-25 11:38 | disposition home or self-care (01) ==
LOC: JASU-SURG 04:03
PROVIDERS: ATTEND Urology
PROC: 0TF3XZZ Fragmentation in Right Kidney Pelvis, External Approach (ICD-10-PCS; principal; 2022-06-25 09:00)
DX: N20.0 Calculus of kidney (principal)